=== PATIENT | female | born 1970 | race Caucasian/White ===

== ENCOUNTER → 2016-11-02 | Outpatient (CLI) | payer MEDICARE ==
[2016-03-29 17:30] VITALS: BP 144/96
[~2016-11-02] VITALS: Ht 170.2 cm; Wt 77.1 kg
[~2016-11-02] MED LIST: ALPR0.5T6 PO; CHOL100013 PO; CRAN200C2 PO; CYCL-331 PO; DIAZ5TAB4 PO; ESCITALOPRAM OXA5 MG PO; FISH12002 PO; HYDR-2758 PO; LEXAPRO20 MG PO; NAPR500T3 PO; OMEP20TA63 PO; ONDA4TAB11 PO; POTA10TA10 PO; PROM6.25 PO; SUCR1TAB35 PO; TRAZ50TA15 PO; VITA1CAP PO
[2016-11-02] MEDS: SINCALIDE 1.54 MCG in IV NORMAL SALINE 50ML 30 ML IV ONE (12:51)
--- NOTE | 2016-11-02 13:37 | RAD ---
Indication abdominal pain for one year. Hepatobiliary scan was performed. 5 mCi of technetium labeled Choletec was administered. 1.5 mcg of CCK was diluted in saline and administered over several minutes. Following the CCK administration a gallbladder ejection fraction calculation was made. There is normal uptake of the radiopharmaceutical in the liver. Activity is seen early within the biliary system and gallbladder. Following the Kinevac administration the estimated gallbladder ejection fraction is 24% which is slightly diminished. IMPRESSION: Patent cystic duct. Somewhat diminished gallbladder ejection fraction
== END | disposition home or self-care (01) ==
LOC: NM 09:12
PROVIDERS: ATTEND Internal Medicine Gastroenterology
DX: K59.00 Constipation, unspecified (principal); R10.13 Epigastric pain; R11.0 Nausea
CPT/HCPCS: 78226; 96374; 96375; A9537; J2805

== ENCOUNTER → 2018-05-04 | Outpatient (CLI) | payer MEDICARE ==
[2016-03-29 17:30] VITALS: BP 144/96
[~2018-05-04] MED LIST changes: +HYDR-2155 PO; -HYDR-2758 PO; +NAPR-514 PO; -NAPR500T3 PO; -PROM6.25 PO; +PROM6.257 PO; +TRAZ-120 PO; -TRAZ50TA15 PO
--- NOTE | 2018-05-04 14:32 | RAD ---
EXAM: Upright and supine AP view of the abdomen DATE: 05/04/2018 12:00 AM INDICATION: EPIGASTRIC PAIN WITH NAUSEA TIMES 2 WEEKS COMPARISON: CT 03/29/2016. FINDINGS: No abnormal small or large bowel dilatation. Moderate colonic stool content. No abnormal soft tissue mass effect. No suspicious calcifications are seen. Cholecystectomy clips are seen in the right upper quadrant. No evidence for free intraperitoneal gas. A 1.3 cm calcification is seen at the lower pole of the left kidney, stable to prior CT 03/29/2016. Rounded calcification in the right lower quadrant projecting over the expected cecum or appendix, nonspecific possibly within the stool or an appendicolith. IMPRESSION: 1. No evidence of bowel obstruction. 2. Left lower pole renal calculus is again seen, stable to prior CT 03/29/2016 3. Chronic calcification the right lower quadrant, possibly within the colon or appendicolith. Electronically signed by: Michael Moraes MD (05/04/2018 2:29 PM) [id number]
== END | disposition home or self-care (01) ==
LOC: PMG 11:48
PROVIDERS: ATTEND Physician Assistant
DX: N20.0 Calculus of kidney (principal); M61.48 Other calcification of muscle, other site; Z90.49 Acquired absence of other specified parts of digestive tract
CPT/HCPCS: 74021

== ENCOUNTER 2019-09-26 16:36 | Emergency (ER) | payer MEDICARE ==
[~2019-09-26] VITALS: Ht 170.2 cm; Wt 86.0 kg
[~2019-09-26 16:36] MED LIST changes: +ONDA-84 PO; -ONDA4TAB11 PO
[2019-09-26 16:45] VITALS: BP 142/86
--- NOTE | 2019-09-26 17:35 | PHYS DOC ---
Past History Past Medical History: Anxiety, Depression, Kidney Stones Past Surgical History: No Surgical History Alcohol Use: None Drug Use: None Adult General Chief Complaint Chief Complaint: DIARRHEA HPI HPI Patient is a 49 year old female who presents with who presents the emergency room with multiple complaints. She states that her preacher called 911 to do a wellness check on her because she has been feeling depressed. She states that she has no plans to hurt herself and she is not feeling suicidal at this time. She states that since Tuesday she has been having diffuse abdominal pain worse on the left upper side. She has been having diarrhea that is watery. She is having chills and sweats but no documented fevers. She states eating anything makes the pain worse and causes her to vomit. She had something similar to this several years ago which she was diagnosed at that time with diverticulitis. Review of Systems Review of Systems General: Reports chills, fatigue, sweats Eyes: Denies drainage, blurred vision, eye redness HENT: Denies rhinorrhea, sore throat, earache Respiratory: Denies cough, shortness of breath, wheezing Cardiac: Denies edema, palpitations, chest pain GI: Reports nausea, vomiting, diarrhea, abdominal pain MSK: Denies neck pain[] Skin: Denies rash, jaundice Neuro: Denies headache, dizziness Psychiatric: Denies SI/HI Allergies Allergies Allergies Coded Allergies Type Severity Reaction Last Updated Verified lorazepam Allergy Intermediate IT KEEPS ME AWAKE FOR DAYS. 04/30/14 Yes Physical Exam Physical Exam General: Awake, alert, NAD. Well Nourished, well hydrated. Cooperative HEENT: Atraumatic, EOMI, PERRL, airway patent, moist oral mucosa Neck: Supple, trachea midline Respiratory: CTA bilaterally, normal effort, no wheezing/crackles CV: RRR, no murmur, cap refill <2 GI: Soft, nondistended, left upper lobe tenderness, no masses MSK: No obvious deformities Skin: Warm, dry, intact Neuro: A&O x3, speech NL, sensory and motor grossly intact, no focal deficits Psych: Normal affect, normal mood, not suicidal or homicidal Current Patient Data Vital Signs Vital Signs Date Time Temp Pulse Resp B/P (MAP) Pulse Ox O2 Delivery O2 Flow Rate FiO2 09/26/19 16:45 98.4 80 16 142/86 (104) 97 Room Air EKG EKG [] Radiology/Procedures Radiology/Procedures [] Course & Med Decision Making Course & Med Decision Making Pertinent Labs and Imaging studies reviewed. (See chart for details) Patient is a 49 year-old female with a history of depression who presents to the Emergency Room complaining of abdominal pain, nausea, vomiting, diarrhea. On exam, patient has left-sided tenderness. Due to patients history, age, and exam work up will need to be done to evaluate for intra-abdominal pathology. Work up ordered includes CBC, CMP, lipase, UA, CT abdomen and pelvis. Patient's pain does not epigastric and a cardiac evaluation does not be needed for atypical pain. Ddx includes diverticulitis, gastroenteritis, colitis. Patient discussed with Dr. Spencer the oncoming physician who will assume care. Dragon Disclaimer Dragon Disclaimer This electronic medical record was generated, in whole or in part, using a voice recognition dictation system. Departure Departure: Impression: Primary Impression: Abdominal pain Disposition: 01 HOME/RESIDENCE PRIOR TO ADM Condition: STABLE Referrals: RADHA ABBOTT (PCP) Justification of Admission: Justification of Admission: Justification of Admission Dx: Yes LYNN DELATORRE MD Sep 26, 2019 17:35
[2019-09-26] MEDS ORDERED: IOHEXOL 240 MG/ML 50ML VIAL. ONE (17:37)
[2019-09-26] MEDS ORDERED: ONDANSETRON PF 4 MG/2 ML VIAL. ONE (17:58)
[2019-09-26] MEDS ORDERED: IOHEXOL 300 MG/ML 75 ML VIAL. IV ONE (18:00)
[2019-09-26] MEDS ORDERED: IOHEXOL 240 MG/ML 50ML VIAL. PO ONE (18:00)
[2019-09-26] MEDS ORDERED: ONDANSETRON PF 4 MG/2 ML VIAL. IVP ONE (18:00)
[2019-09-26 18:03] LABS: BASO % 1 % (0-3); EOS # 0.2 x10^3/uL (0.0-0.7); EOS % 3 % (0-3); HEMATOCRIT 38.9 % (36.0-47.0); HEMOGLOBIN 13.2 g/dL (12.0-15.5); LYMPH # 1.8 x10^3/uL (1.0-4.8); LYMPH % 28 % (24-48); MEAN CORPUSCULAR HEMOGLOBIN 29 pg (25-35); MEAN CORPUSCULAR HGB CONC 34 g/dL (31-37); MEAN CORPUSCULAR VOLUME 87 fL (79-100); MONO # 0.5 x10^3/uL (0.0-1.1); MONO % 7 % (0-9); NEUT % 61 % (31-73); PLATELET COUNT 239 x10^3/uL (140-400); RED BLOOD COUNT 4.49 x10^6/uL (3.50-5.40); RED CELL DISTRIBUTION WIDTH 13.8 % (11.5-14.5); WHITE BLOOD COUNT 6.4 x10^3/uL (4.0-11.0)
[2019-09-26 18:10] LABS: CALCIUM 9.1 mg/dL (8.5-10.1); GFR 58.5; POTASSIUM 3.5 mmol/L (3.5-5.1)
[2019-09-26 18:13] LABS: BACTERIA,URINE 0 /HPF (0-FEW); BILIRUBIN,URINE NEG (NEG); CLARITY,URINE CLEAR; COLOR,URINE YELLOW; GLUCOSE,URINE NEG (NEG); NITRITE,URINE NEG (NEG); RBC,URINE 0 /HPF (0-2); SQUAMOUS EPITHELIAL CELL,UR MANY /LPF; UROBILINOGEN,URINE 0.2 mg/dL (0.2 mg/dL)
[2019-09-26 18:15] LABS: ALBUMIN 3.6 g/dL (3.4-5.0); ALBUMIN/GLOBULIN RATIO 0.8 (1.0-1.7); TOTAL BILIRUBIN 0.2 mg/dL (0.2-1.0); TOTAL PROTEIN 7.9 g/dL (6.4-8.2)
--- NOTE | 2019-09-26 19:33 | RAD ---
INDICATION: Reason: abd pain, diarrhea - DRINKING [id number] / Spl. Instructions: OMNI 300, 60ml OMNI 240, 30ml, REDUCED DOSE / History: COMPARISON: March 2016 TECHNIQUE: Axial CT images obtained through the abdomen and pelvis with contrast. One or more of the following individualized dose reduction techniques were utilized for this examination: 1. Automated exposure control; 2. Adjustment of the mA and/or kV according to patient size; 3. Use of iterative reconstruction technique. FINDINGS: Abdominal aorta is not aneurysmal. Fat-containing inguinal hernias. Postcholecystectomy changes. Liver is borderline low density. Mild fatty infiltration not excluded. No peripancreatic fluid collection. Spleen unremarkable. Nonobstructive left renal stone measuring proximally 13 mm. Urinary bladder is partially distended. Prominence of bilateral renal pelvis. Dominant follicle or small cyst right ovary measuring 18 mm. Colonic diverticulosis. No periappendiceal inflammatory changes. No dilated loops of bowel to suggest obstruction. Degenerative changes of the spine. IMPRESSION: * Nonobstructive left renal stone with mild prominence of the bilateral renal pelvis without a definite radiopaque obstructing ureter stone. * No evidence of bowel obstruction or appendicitis. Electronically signed by: Elliott Ramos MD (09/26/2019 7:31 PM) [id number]
[2019-09-26] MEDS ORDERED: LOPE2TAB27 PO (20:12)
== END 2019-09-26 20:38 | disposition home or self-care (01) ==
LOC: ER 16:36
DX: R10.84 Generalized abdominal pain (principal); R19.7 Diarrhea, unspecified; R11.2 Nausea with vomiting, unspecified; Z87.442 Personal history of urinary calculi; Z88.8 Allergy status to other drugs, medicaments and biological substances
CPT/HCPCS: 36415; 74177; 80053; 81001; 83690; 85025; 96374; 99285; J2405; Q9966; Q9967

== ENCOUNTER 2020-09-08 06:46 | Emergency (ER) | payer MEDICARE ==
[~2020-09-08] VITALS: Ht 170.2 cm; Wt 85.9 kg
[~2020-09-08 06:46] MED LIST changes: +LOPE2TAB27 PO
--- NOTE | 2020-09-08 06:51 | PHYS DOC ---
Past History Past Medical History: Anxiety, Depression, IBS General Adult HPI: HPI: Patient is a 50 year old female with history of anxiety, depression, IBS who presents with feelings of loneliness, hopelessness, and depression. Patient states that she has been battling these feelings for a long time. She feels like no one has time for her. To help with these sensations she has been volunteering frequently. The last couple of nights she has been unable to sleep and has been feeling increasingly hopeless. Last night she tried to reach out to several friends, but no one responded. Then she commented on Facebook. She is very vague about what she commented, but states that she essentially said "I am not doing very well." She states that she had 6 people respond, and one of them had called the police to check on her. The police came to see her last night and she was not brought to the emergency department at that time. She had another friend come to see her today, who brought her to the emergency department for an evaluation. She states that she has been seen in the emergency department in the past and has been set up with outpatient resources. She states that she sees a therapist once a week. She is on venlafaxine for depression has not missed any medications. She denies any ingestions or attempts at self-harm. She does occasionally have thoughts of wanting to be , but denies earl suicidal ideation. Review of Systems: Review of Systems: Constitutional: Denies fever or chills Eyes: Denies change in visual acuity HENT: Denies nasal congestion or sore throat Respiratory: Denies cough or shortness of breath Cardiovascular: Denies chest pain or edema GI: Denies abdominal pain, nausea, vomiting, bloody stools or diarrhea : Denies dysuria Musculoskeletal: Denies back pain or joint pain Integument: Denies rash Neurologic: Denies headache, focal weakness or sensory changes Endocrine: Denies polyuria or polydipsia Lymphatic: Denies swollen glands Psychiatric: Reports hopelessness, loneliness, depression, anxiety, insomnia Physical Exam: PE: Constitutional: Well developed, well nourished, no acute distress, non-toxic appearance. [] HENT: Normocephalic, atraumatic, bilateral external ears normal, oropharynx moist, no oral exudates, nose normal. [] Eyes: PERRLA, EOMI, conjunctiva normal, no discharge. [] Neck: Normal range of motion, no tenderness, supple, no stridor. [] Cardiovascular:Heart rate regular rhythm, no murmur [] Lungs & Thorax: Bilateral breath sounds clear to auscultation [] Abdomen: Bowel sounds normal, soft, no tenderness, no masses, no pulsatile masses. [] Skin: Warm, dry, no erythema, no rash. [] Back: No tenderness, no CVA tenderness. [] Extremities: No tenderness, no cyanosis, no clubbing, ROM intact, no edema. [] Neurologic: Alert and oriented X 3, normal motor function, normal sensory function, no focal deficits noted. [] Psychologic: Tearful affect. Depressed mood. Denies SI/HI. Linear/logical thought processes. [] EKG: EKG: [] Radiology/Procedures: Radiology/Procedures: [] Heart Score: C/O Chest Pain: N/A Risk Factors: Risk Factors: DM, Current or recent (<one month) smoker, HTN, HLP, family history of CAD, obesity. Risk Scores: Score 0 - 3: 2.5% MACE over next 6 weeks - Discharge Home Score 4 - 6: 20.3% MACE over next 6 weeks - Admit for Clinical Observation Score 7 - 10: 72.7% MACE over next 6 weeks - Early Invasive Strategies Course & Med Decision Making: Course & Med Decision Making Pertinent Labs and Imaging studies reviewed. (See chart for details) Patient is a 50-year-old female with past medical history of anxiety/depression who presents with worsening depression and feelings of hopelessness/loneliness. She does endorse a feeling of wanting to be at times, but denies suicidal ideation. On arrival she is afebrile, hemodynamically stable. Well-appearing on examination, although tearful. She denies any organic medical complaints. Do not feel that she requires any work-up in the emergency department at this time. Patient will be evaluated by the PAT team to help determine the best disposition plan for her psychiatric needs. [id number] Anne Disclaimer: Anne Disclaimer: This electronic medical record was generated, in whole or in part, using a voice recognition dictation system. Departure Departure: Impression: Primary Impression: Hopelessness Additional Impression: Loneliness Referrals: RADHA ABBOTT (PCP) MICHAEL JASON MD Sep 08, 2020 06:51
[2020-09-08 09:51] VITALS: BP 143/93
== END 2020-09-08 09:57 | disposition home or self-care (01) ==
LOC: ER 06:46 → MERGE 06:46 → ER 09:57
DX: Z60.2 Problems related to living alone (principal); R45.89 Other symptoms and signs involving emotional state; F41.9 Anxiety disorder, unspecified; F32.9 Major depressive disorder, single episode, unspecified; K58.9 Irritable bowel syndrome, unspecified
CPT/HCPCS: 99281

== ENCOUNTER 2021-05-27 08:38 | Emergency (ER) | payer MEDICARE ==
[~2021-05-27] VITALS: Ht 170.2 cm; Wt 86.3 kg
[~2021-05-27 08:38] MED LIST changes: -CYCL-331 PO; +CYCL10TA19 PO
--- NOTE | 2021-05-27 08:43 | PHYS DOC ---
Past History Past Medical History: Anxiety, Depression, Kidney Stones Past Surgical History: Cholecystectomy Smoking: Non-smoker Alcohol Use: None Drug Use: None General Adult HPI: HPI: Patient is a 51-year-old female who presents with report of generalized abdominal pain. She has had symptoms for the past 5 days. She reports intermittent nausea, vomiting, diarrhea. She denies melena, hematochezia or hematemesis. She denies chest pain or dyspnea. She currently describes epigastric abdominal pain. She also has a history of significant, chronic anxiety and is requesting something to help her relax. She reports that she has had very little to eat over the last 5 days. She denies urinary symptoms. She denies cough, fevers, chills. She denies dizziness, syncope, focal weakness symptoms. She reports that she has a history of multiple abdominal and GI issues, including what sounds like gastritis. She has previously seen GI. She denies any known sick contacts, denies travel history or recent hospitalization. Review of Systems: Review of Systems: Constitutional: Denies fever or chills Eyes: Denies change in visual acuity HENT: Denies nasal congestion or sore throat Respiratory: Denies cough or shortness of breath Cardiovascular: Denies chest pain or edema GI: Generalized abdominal pain, epigastric abdominal pain, nausea, vomiting, diarrhea, decreased appetite/anorexia : Denies urinary symptoms Musculoskeletal: Diffuse mid and lower back pain, myalgias. Denies joint pain or swelling. Integument: Denies rash Neurologic: Denies headache, focal weakness or sensory changes. Denies di zziness, weakness, syncope. Psychiatric: Chronic anxiety Allergies: Allergies: Allergies Coded Allergies Type Severity Reaction Last Updated Verified lorazepam Allergy Intermediate IT KEEPS ME AWAKE FOR DAYS. 04/30/14 Yes Physical Exam: PE: Constitutional: Well developed, well nourished, no acute distress, non-toxic appearance. [] HENT: Normocephalic, atraumatic, oropharynx is patent and clear, mucous membranes moist. No evidence of facial or oral trauma Eyes: PERRL, EOMI, conjunctiva normal, no discharge. Sclera are anicteric. Neck: Normal range of motion, no tenderness, supple, no stridor. Trachea is midline Cardiovascular:Heart rate regular rhythm, +2 radial and +2 posterior tibial pulses bilaterally Lungs & Thorax: Lungs are clear to auscultation bilaterally without rales, rhonchi or wheezes. Abdomen: Abdomen is soft, nondistended, generalized/nonfocal diffuse tenderness to palpation, with inconsistent voluntary guarding, no rebound tenderness, no rigidity. No palpable masses organomegaly. No flank abdominal ecchymoses. No CVA tenderness. No palpable pulsatile mass. No pain or tenderness out of proportion to exam. Skin: Warm, dry, no erythema, no rash. No jaundice. Back: No tenderness, no CVA tenderness. Full range of motion. Extremities: No tenderness, no cyanosis, no clubbing, ROM intact, no edema. No calf tenderness. Neurologic: Alert and oriented X 3, normal motor function, normal sensory function, no focal deficits noted. [] Psychologic: She is anxious but cooperative. EKG: EKG: EKG is interpreted at 1033 Rhythm is sinus Rate is 70 bpm [place] is left No STEMI Radiology/Procedures: Radiology/Procedures: IMAGING REPORT Signed PATIENT: SHERI MANJARREZ ACCOUNT: [id number] : 1970 LOCATION: ER AGE: 51 SEX: F EXAM STATUS: REG ER ORD. PHYSICIAN: AGUILAR MELGAR DO REASON: abd pain, n/v/diarrhea, OMNI 300, 60ml PROCEDURE: CT ABD PELV W/ IV CONTRST ONLY Examination: CT of the abdomen pelvis with IV contrast HISTORY: History of abdominal pain, nausea, vomiting, diarrhea COMPARISON: 09/26/2019 TECHNIQUE: Axial CT images of the abdomen pelvis were performed with IV contrast. Coronal and sagittal reformats are performed Exposure: One or more of the following individualized dose reduction techniques were utilized for this examination: 1. Automated exposure control 2. Adjustment of the mA and/or kV according to patient size 3. Use of iterative reconstruction technique FINDINGS: Minimal bibasilar lung atelectasis. No evidence of free air identified in the abdomen. Mild decreased attenuation noted in the liver likely steatosis. The spleen, adrenals grossly appears unremarkable. Cholecystectomy changes. The stomach is mildly distended. Mild fatty atrophic changes of the pancreas. Mild fluid distended small bowel loops identified in the lower mid abdomen with enhancement of the small bowel wall with surrounding mild fat stranding. The appendix is normal. Feces and gas noted in the colon. Urinary bladder is mildly distended. The bilateral kidneys enhance symmetrically. There is punctate 2 mm calculus identified in the left kidney. There is a large 1.2 cm calculus in the left kidney similar to prior exam. No evidence of hydronephrosis Mild degenerative changes thoracolumbar spine IMPRESSION: 1. Mild fluid distended small bowel loops identified in the lower mid abdomen with enhancement of the small bowel wall with surrounding mild fat stranding likely enteritis. Developing partial small bowel obstruction is not excluded. 2. Punctate 2 mm calculus identified in the left kidney. Large 1.2 cm calculus identified in the left kidney similar to prior exam. No evidence of hydronephrosis. 3. Hepatic steatosis. Electronically signed by: Carter Zamudio MD (05/27/2021 10:25 AM) [id number] DICTATED AND SIGNED BY: CARTER ZAMUDIO MD DATE: 05/27/21 1020 CC: AGUILAR MELGAR DO; RADHA ABBOTT PA ~ Heart Score: C/O Chest Pain: No Risk Factors: Risk Factors: DM, Current or recent (<one month) smoker, HTN, HLP, family history of CAD, obesity. Risk Scores: Score 0 - 3: 2.5% MACE over next 6 weeks - Discharge Home Score 4 - 6: 20.3% MACE over next 6 weeks - Admit for Clinical Observation Score 7 - 10: 72.7% MACE over next 6 weeks - Early Invasive Strategies Course & Med Decision Making: Course & Med Decision Making Pertinent Labs and Imaging studies reviewed. (See chart for details) The patient is given IV fluids, IV morphine, IV Zofran. She is tolerating oral fluids well. She feels better. She has a benign, nonsurgical abdominal exam. I discussed the findings, differential diagnosis and plan of care with her. Findings of enteritis needed not seen on CT, clinically she does not have an obstruction. I have discussed all of the findings, differential diagnosis and plan of care with her. I recommend that she follow-up with her primary care physician, eat a bland diet, drink clear fluids. She will prescribed antiemetics for home. Return precautions are given. She verbalizes omid vázquez. She is discharged in stable and improved condition. Anne Disclaimer: Anne Disclaimer: This electronic medical record was generated, in whole or in part, using a voice recognition dictation system. Departure Departure: Impression: Primary Impression: Generalized abdominal pain Additional Impression: Nausea vomiting and diarrhea Disposition: HOME / SELF CARE / HOMELESS Condition: STABLE Referrals: RADHA ABBOTT (PCP) Patient Instructions: Nausea and Vomiting, Viral Gastroenteritis Additional Instructions: Return to the ER for more severe abdominal pain, vomiting blood, temperature 100.4 or higher, chest pain, shortness of breath or other concerns. Use the nausea medicine as needed/as directed. Drink fluids, eat a bland diet, advance as tolerated. Please contact your primary care doctor for follow-up. Scripts Ondansetron (ONDANSETRON ODT) 4 Mg Tab.rapdis 1 TAB PO PRN Q6-8HRS for nausea and vomiting, #30 TAB Prov: AGUILAR MELGAR DO 05/27/21 AGUILAR MELGAR DO May 27, 2021 08:43
[2021-05-27 08:48] VITALS: BP 150/84
[2021-05-27] MEDS ORDERED: IOHEXOL 300 MG/ML 75 ML VIAL. IV ONE (09:15)
[2021-05-27] MEDS ORDERED: ONDANSETRON PF 4 MG/2 ML VIAL. IVP ONE (09:30)
[2021-05-27] MEDS ORDERED: IV NORMAL SALINE 1,000ML 1,000 ML IV ONE (09:30)
[2021-05-27] MEDS ORDERED: MORPHINE SULFATE 4 MG/ML DISP.SYRIN. IV ONE (09:30)
[2021-05-27 09:38] LABS: BASO # 0.1 x10^3/uL (0.0-0.2); BASO % 2 % (0-3); EOS # 0.1 x10^3/uL (0.0-0.7); EOS % 3 % (0-3); HEMATOCRIT 39.2 % (36.0-47.0); HEMOGLOBIN 13.3 g/dL (12.0-15.5); LYMPH # 0.9 x10^3/uL (1.0-4.8); LYMPH % 21 % (24-48); MEAN CORPUSCULAR HEMOGLOBIN 30 pg (25-35); MEAN CORPUSCULAR HGB CONC 34 g/dL (31-37); MEAN CORPUSCULAR VOLUME 88 fL (79-100); MONO # 0.3 x10^3/uL (0.0-1.1); MONO % 8 % (0-9); NEUT # 2.8 x10^3uL (1.8-7.7); NEUT % 66 % (31-73); PLATELET COUNT 199 x10^3/uL (140-400); RED BLOOD COUNT 4.46 x10^6/uL (3.50-5.40); WHITE BLOOD COUNT 4.3 x10^3/uL (4.0-11.0)
[2021-05-27 09:44] LABS: CALCIUM 9.2 mg/dL (8.5-10.1); POTASSIUM 4.2 mmol/L (3.5-5.1)
[2021-05-27 09:51] LABS: ALBUMIN 3.7 g/dL (3.4-5.0); ALBUMIN/GLOBULIN RATIO 1.1 (1.0-1.7); TOTAL BILIRUBIN 0.5 mg/dL (0.2-1.0); TOTAL PROTEIN 7.2 g/dL (6.4-8.2)
--- NOTE | 2021-05-27 10:27 | RAD ---
Examination: CT of the abdomen pelvis with IV contrast HISTORY: History of abdominal pain, nausea, vomiting, diarrhea COMPARISON: 09/26/2019 TECHNIQUE: Axial CT images of the abdomen pelvis were performed with IV contrast. Coronal and sagitta l reformats are performed Exposure: One or more of the following individualized dose reduction techniques were utilized for thi s examination: 1. Automated exposure control 2. Adjustment of the mA and/or kV according to patient size 3. Use of iterative reconstruction technique FINDINGS: Minimal bibasilar lung atelectasis. No evidence of free air identified in the abdomen. Mild decreased attenuation noted in the liver likely steatosis. The spleen, adrenals grossly appears unremarkable. Cholecystectomy changes. The stomach is mildly distended. Mild fatty atrophic changes of the pancreas. Mild fluid distended sm all bowel loops identified in the lower mid abdomen with enhancement of the small bowel wall with chapis rounding mild fat stranding. The appendix is normal. Feces and gas noted in the colon. Urinary bladder is mildly distended. The bilateral kidneys enhance symmetrically. There is punctate 2 mm calculus identified in the left k idney. There is a large 1.2 cm calculus in the left kidney similar to prior exam. No evidence of hydronephrosis Mild degenerative changes thoracolumbar spine IMPRESSION: 1. Mild fluid distended small bowel loops identified in the lower mid abdomen with enhancement of th e small bowel wall with surrounding mild fat stranding likely enteritis. Developing partial small bow el obstruction is not excluded. 2. Punctate 2 mm calculus identified in the left kidney. Large 1.2 cm calculus identified in the lef t kidney similar to prior exam. No evidence of hydronephrosis. 3. Hepatic steatosis. Electronically signed by: Carter Zamudio MD (05/27/2021 10:25 AM) [id number]
--- NOTE | 2021-05-27 11:01 | EKG ---
[address] [address] Test Date: 2021-05-27 Test Time: 10:28:51 Pat Name: SHERI MANJARREZ Department: Room: Gender: F Director Account Management: PA : 1970 Requested By: AGUILAR MELGAR Order Number: [id number] Reading MD: Jaden Lin Measurements Intervals [place] Rate: 70 P: 31 WV: 164 QRS: -15 QRSD: 66 T: 81 QT: 416 QTc: 452 Interpretive Statements SINUS RHYTHM LEFTWARD AXIS T ABNORMALITY IN HIGH LATERAL LEADS Electronically Signed On 05-29-2021 13:34:01 CDT by Jaden Lin
[2021-05-27 11:38] LABS: BACTERIA,URINE 0 /HPF (0-FEW); CLARITY,URINE CLEAR; COLOR,URINE YELLOW; GLUCOSE,URINE NEG (NEG); NITRITE,URINE NEG (NEG); SQUAMOUS EPITHELIAL CELL,UR FEW /LPF; UROBILINOGEN,URINE 0.2 mg/dL (0.2 mg/dL)
[2021-05-27] MEDS ORDERED: ONDA4TAB12 PO (11:49)
== END 2021-05-27 12:02 | disposition home or self-care (01) ==
LOC: ER 08:38
DX: R10.84 Generalized abdominal pain (principal); R11.2 Nausea with vomiting, unspecified; R19.7 Diarrhea, unspecified; Z87.442 Personal history of urinary calculi; Z90.49 Acquired absence of other specified parts of digestive tract; Z88.8 Allergy status to other drugs, medicaments and biological substances
CPT/HCPCS: 36415; 74177; 80053; 81001; 83605; 83690; 83735; 84484; 85025; 87086; 93005; 96361; 96374; 96375; 99285; J2270; J2405; J7030; Q9967

== ENCOUNTER 2021-07-06 06:06 | Emergency (ER) | payer MEDICARE ==
[~2021-07-06] VITALS: Ht 170.2 cm; Wt 86.3 kg
[~2021-07-06 06:06] MED LIST changes: +ONDA4TAB12 PO
[2021-07-06 06:12] VITALS: BP 137/94
--- NOTE | 2021-07-06 06:49 | PHYS DOC ---
Past History Past Medical History: Anxiety, Depression, Kidney Stones Past Surgical History: Cholecystectomy Additional Past Surgical Histo: L ovary removed Smoking: Non-smoker Alcohol Use: None Drug Use: None General Adult EDM: Chief Complaint: SUICIDAL IDEATION HPI: HPI: Patient is a 51-year-old female coming in via EMS for anxiety and suicidal ideations that are worse over the past 2 days. Patient states she has not been able to do her usual things she does to cope. States she feels as bad as she did when she was hospitalized at [facility] 5 years ago. Denies any suicide attempts however patient states that she put her pills in her hand to look out and laughed, stated that she would never do that. Patient states she otherwise has been well. Denies any hallucinations or thoughts of hurting anyone else Review of Systems: Review of Systems: All other systems within normal limits except for as noted in the HPI Allergies: Allergies: Allergies Coded Allergies Type Severity Reaction Last Updated Verified lorazepam Allergy Intermediate IT KEEPS ME AWAKE FOR DAYS. 07/06/21 Yes Physical Exam: PE: Constitutional: Well developed, well nourished, no acute distress, non-toxic appearance. [] HENT: Normocephalic, atraumatic, bilateral external ears normal, nose normal. [] Eyes: PERRLA, conjunctiva normal, no discharge. [] Neck: No rigidity, supple, no stridor. [] Cardiovascular: Regular rate and rhythm, brisk cap refill [] Lungs & Thorax: Non labored symmetric respirations, no tachypnea or respiratory distress [] Abdomen: Soft, nondistended. Skin: Warm, dry, no erythema, no rash. [] Back: Unremarkable Extremities: No deformities, range of motion grossly intact, no lower extremity edema [] Neurologic: Alert and oriented X 3, no focal deficits noted. [] Psychologic: Affect normal, judgement normal, suicidal ideations, tearful Current Patient Data: Vital Signs: Vital Signs Date Time Temp Pulse Resp B/P (MAP) Pulse Ox O2 Delivery O2 Flow Rate FiO2 07/06/21 06:12 98.0 73 20 137/94 (108) 98 Room Air EKG: EKG: [] Radiology/Procedures: Radiology/Procedures: [] Heart Score: C/O Chest Pain: No Risk Factors: Risk Factors: DM, Current or recent (<one month) smoker, HTN, HLP, family history of CAD, obesity. Risk Scores: Score 0 - 3: 2.5% MACE over next 6 weeks - Discharge Home Score 4 - 6: 20.3% MACE over next 6 weeks - Admit for Clinical Observation Score 7 - 10: 72.7% MACE over next 6 weeks - Early Invasive Strategies Course & Med Decision Making: Course & Med Decision Making Patiently medically cleared for PAT consult Evaluated by Evan, will discharge with safety plan. Patient agrees that she does not feel that she is a threat to herself. States that her passive suicidal ideations are related to her anxiety. Anne Disclaimer: Anne Disclaimer: This electronic medical record was generated, in whole or in part, using a voice recognition dictation system. Departure Departure: Impression: Primary Impression: Anxiety Additional Impression: Passive suicidal ideations Disposition: 01 HOME / SELF CARE / HOMELESS Condition: STABLE Referrals: RADHA ABBOTT (PCP) Patient Instructions: Suicidal Feelings, How to Help Yourself JACKIE BROOKS MD July 06, 2021 06:49
[2021-07-06 07:40] LABS: BASO % 1 % (0-3); EOS # 0.1 x10^3/uL (0.0-0.7); EOS % 3 % (0-3); HEMATOCRIT 39.6 % (36.0-47.0); HEMOGLOBIN 13.3 g/dL (12.0-15.5); LYMPH # 1.5 x10^3/uL (1.0-4.8); LYMPH % 29 % (24-48); MEAN CORPUSCULAR HEMOGLOBIN 30 pg (25-35); MEAN CORPUSCULAR HGB CONC 34 g/dL (31-37); MEAN CORPUSCULAR VOLUME 89 fL (79-100); MONO # 0.4 x10^3/uL (0.0-1.1); MONO % 8 % (0-9); NEUT # 3.1 x10^3uL (1.8-7.7); NEUT % 61 % (31-73); PLATELET COUNT 217 x10^3/uL (140-400); RED BLOOD COUNT 4.48 x10^6/uL (3.50-5.40); RED CELL DISTRIBUTION WIDTH 14.2 % (11.5-14.5); WHITE BLOOD COUNT 5.2 x10^3/uL (4.0-11.0)
[2021-07-06 07:51] LABS: CALCIUM 9.2 mg/dL (8.5-10.1); CREATININE 0.9 mg/dL (0.6-1.0); GFR 65.5; POTASSIUM 4.2 mmol/L (3.5-5.1)
[2021-07-06 07:52] LABS: AMPHETAMINE/METHAMPHETAMINE NEG (NEG); BARBITURATES NEG (NEG); BENZODIAZEPINES NEG (NEG); CANNABINOIDS NEG (NEG); COCAINE NEG (NEG); METHADONE NEG (NEG); OPIATES NEG (NEG); PHENCYCLIDINE NEG (NEG)
[2021-07-06 07:55] LABS: INFLUENZA A PATIENT NEGATIVE (NEGATIVE); INFLUENZA B PATIENT NEGATIVE (NEGATIVE)
[2021-07-06 07:57] LABS: ALBUMIN 3.5 g/dL (3.4-5.0); ALBUMIN/GLOBULIN RATIO 0.9 (1.0-1.7); MAGNESIUM 2.2 mg/dL (1.8-2.4); TOTAL BILIRUBIN 0.2 mg/dL (0.2-1.0); TOTAL PROTEIN 7.5 g/dL (6.4-8.2)
[2021-07-06 07:58] LABS: BACTERIA,URINE 0 /HPF (0-FEW); CLARITY,URINE CLEAR; COLOR,URINE YELLOW; GLUCOSE,URINE NEG (NEG); NITRITE,URINE NEG (NEG); SQUAMOUS EPITHELIAL CELL,UR FEW /LPF; UROBILINOGEN,URINE 0.2 mg/dL (0.2 mg/dL)
[2021-07-06 08:01] LABS: ACETAMIN < 2.0 mcg/mL (10-30); ETHANOL < 10 mg/dL (0-10); SALIC 0.7 mg/dL (2.8-20.0)
[2021-07-06] MEDS ORDERED: IBUPROFEN 600 MG TABLET. PO ONE (09:00)
== END 2021-07-06 10:30 | disposition home or self-care (01) ==
LOC: ER 06:06
DX: F41.9 Anxiety disorder, unspecified (principal); R45.851 Suicidal ideations; F32.9 Major depressive disorder, single episode, unspecified; Z20.822 Contact with and (suspected) exposure to COVID-19; Z87.442 Personal history of urinary calculi; Z88.8 Allergy status to other drugs, medicaments and biological substances
CPT/HCPCS: 80053; 80307; 80329; 81001; 83735; 85025; 87086; 87428; 99285; C9803; G0480; U0003